=== PATIENT | male | born 1995 | race African-American/Black ===

== ENCOUNTER 2024-07-14 13:34 | Inpatient (IN) | payer OTHER ==
[~2024-07-14] VITALS: Ht 193 cm; Wt 98.4 kg
[2024-07-14] MEDS ORDERED: AMLODIPINE BESYLATE 5 MG TABLET ONE (15:08)
[2024-07-14] MEDS: AMLODIPINE BESYLATE 5 MG TABLET PO ONE (15:20)
[2024-07-14 15:30] LABS: BASOPHILS % (AUTO) 0.3 % (0.0-2.0); EOSINOPHILS % (AUTO) 0.1 % (0.0-6.0); HEMATOCRIT 38 % (39-51); HEMOGLOBIN 12.6 g/dL (13.5-17.5); LYMPHOCYTES # (AUTO) 1.3 K/uL (0.8-4.8); LYMPHOCYTES % (AUTO) 11.1 % (20.0-44.0); MEAN CORPUSCULAR HEMOGLOBIN 29 PG (26.0-33.0); MEAN CORPUSCULAR HGB CONC 33 g/dl (31.0-36.0); MEAN CORPUSCULAR VOLUME 86 fL (80-96); MONOCYTES # (AUTO) 0.3 K/uL (0.1-1.30); NEUTROPHILS # (AUTO) 9.9 K/uL (1.8-8.9); NEUTROPHILS % (AUTO) 85.5 % (43.0-81.0); PLATELET COUNT (AUTO) 249 K/uL (150-450); RED CELL DISTRIBUTION WIDTH 15.2 % (11.5-15.0); WHITE BLOOD COUNT (AUTO) 11.6 K/uL (4.3-11.0)
[2024-07-14 16:01] LABS: ALANINE AMINOTRANSFERASE 41 U/L (12-78); ALBUMIN 3.6 g/dL (3.4-5.0); ALKALINE PHOSPHATASE 71 U/L (46-116); ASPARTATE AMINOTRANSFERASE 22 U/L (15-37); BILIRUBIN,DIRECT 0.4 mg/dL (0.0-0.2); BILIRUBIN,TOTAL 1.8 mg/dL (0.2-1.0); TOTAL PROTEIN, SERUM 6.9 g/dL (6.4-8.2)
[2024-07-14 16:21] LABS: CALCIUM, SERUM 9.2 mg/dL (8.5-10.1); CARBON DIOXIDE 26 mmol/L (21-32); CHLORIDE 104 mmol/L (98-107); CREATININE 1.5 mg/dL (0.6-1.3); GLUCOSE 147 mg/dL (74-106); POTASSIUM 3.7 mmol/L (3.5-5.1); SODIUM SERUM 138 mmol/L (136-145); UREA NITROGEN, BLOOD 20 mg/dL (7-18)
[2024-07-14] MEDS: hydrALAZINE HCL IV 20 MG VIAL IV ONE (16:30)
[2024-07-14] MEDS ORDERED: PROCHLORPERAZINE EDISYLATE 10 MG/2 ML VIAL ONE (16:31)
[2024-07-14] MEDS ORDERED: diphenhydrAMINE HCL 50 MG/ML VIAL ONE (16:31)
[2024-07-14] MEDS: diphenhydrAMINE HCL 50 MG/ML VIAL IV ONE (16:35)
[2024-07-14] MEDS ORDERED: hydrALAZINE HCL IV 20 MG VIAL ONE (16:37)
[2024-07-14] MEDS: PROCHLORPERAZINE EDISYLATE 10 MG/2 ML VIAL IVP ONE (16:40)
[2024-07-14] MEDS: IV NS 0.9% 1,000 ML BAG IV ONE (16:50)
[2024-07-14] MEDS ORDERED: FUROSEMIDE 20 MG/2 ML VIAL ONE (18:55)
[2024-07-14] MEDS ORDERED: NTG 50 MG/D5W250 ML BOTTL 250 ML IV ONE (18:56)
[2024-07-14] MEDS: FUROSEMIDE 20 MG/2 ML VIAL IV ONE (19:00)
[2024-07-14] MEDS: NTG 50 MG/D5W250 ML BOTTL 250 ML IV PRN (19:10)
[2024-07-14] MEDS ORDERED: MAG HYDROX/AL HYDROX/SIMETH 30 ML UDC PO PRN (20:30)
[2024-07-14] MEDS ORDERED: ONDANSETRON HCL/PF 4 MG/2 ML VIAL IVP PRN (20:30)
[2024-07-14] MEDS ORDERED: MAGNESIUM HYDROXIDE 30 ML UDC PO PRN (20:30)
[2024-07-14] MEDS ORDERED: Z GUARD REMEDY 4 OZ OINT TP PRN (20:30)
[2024-07-14 20:42] LABS: APPEARANCE,URINE CLEAR (CLEAR); BILIRUBIN,URINE NEGATIVE (NEGATIVE); BLOOD, URINE NEGATIVE Ery/uL (NEGATIVE); COLOR,URINE OTHER (YELLOW); KETONES,URINE NEGATIVE (NEGATIVE); LEUKOCYTE ESTERASE ,URINE NEGATIVE (NEGATIVE); NITRITE, URINE NEGATIVE (NEGATIVE); PROTEIN,URINE NEGATIVE (NEGATIVE); UGLUCOSE NEGATIVE (NEGATIVE); UROBILINOGEN,URINE 0.2 EU/dL (0.2)
[2024-07-14 20:52] VITALS: O2SAT 98
[2024-07-14] MEDS: FUROSEMIDE 20 MG/2 ML VIAL IV SCH (21:00)
[2024-07-14 21:11] LABS: AMPHETAMINE, URINE NEGATIVE (NEGATIVE); BARBITURATE, URINE NEGATIVE (NEGATIVE); BENZODIAZEPINE, URINE NEGATIVE (NEGATIVE); CANNABINOID, URINE NEGATIVE (NEGATIVE); COCCAINE, URINE NEGATIVE (NEGATIVE); OPIATE, URINE NEGATIVE (NEGATIVE); PHENCYCLIDINE SCREEN,URINE NEGATIVE (NEGATIVE)
[2024-07-14] MEDS ORDERED: MAG HYDROX/AL HYDROX/SIMETH 30 ML UDC ONE (22:29)
[2024-07-14 22:56] VITALS: O2SAT 98
[2024-07-15 01:21] VITALS: O2SAT 97
[2024-07-15 02:48] VITALS: O2SAT 98
[2024-07-15 05:04] VITALS: O2SAT 98
[2024-07-15] MEDS ORDERED: NTG 50 MG/D5W250 ML BOTTL 250 ML IV ONE (05:22)
[2024-07-15] MEDS: NTG 50 MG/D5W250 ML BOTTL 250 ML IV PRN (07:30)
[2024-07-15 08:20] VITALS: O2SAT 98
[2024-07-15 08:46] LABS: BASOPHILS % (AUTO) 0.2 % (0.0-2.0); HEMATOCRIT 34 % (39-51); HEMOGLOBIN 11.9 g/dL (13.5-17.5); LYMPHOCYTES # (AUTO) 1.5 K/uL (0.8-4.8); LYMPHOCYTES % (AUTO) 10.3 % (20.0-44.0); MEAN CORPUSCULAR HEMOGLOBIN 29 PG (26.0-33.0); MEAN CORPUSCULAR HGB CONC 35 g/dl (31.0-36.0); MEAN CORPUSCULAR VOLUME 85 fL (80-96); MONOCYTES # (AUTO) 0.9 K/uL (0.1-1.30); MONOCYTES % (AUTO) 6.3 % (2.0-12.0); NEUTROPHILS # (AUTO) 12.1 K/uL (1.8-8.9); NEUTROPHILS % (AUTO) 83.2 % (43.0-81.0); PLATELET COUNT (AUTO) 216 K/uL (150-450); RED BLOOD CELL COUNT(AUTO) 4.05 MIL/uL (4.5-6.0); RED CELL DISTRIBUTION WIDTH 15.3 % (11.5-15.0); WHITE BLOOD COUNT (AUTO) 14.5 K/uL (4.3-11.0)
[2024-07-15] MEDS: PANTOPRAZOLE 40 MG VIAL IV SCH (09:00)
[2024-07-15 09:05] LABS: INR 1.31 (0.91-1.10); PROTHROMBIN TIME 13.6 SECS (9.2-11.1)
[2024-07-15] MEDS ORDERED: FUROSEMIDE 20 MG/2 ML VIAL ONE (09:23)
[2024-07-15] MEDS ORDERED: PANTOPRAZOLE 40 MG VIAL ONE (09:24)
[2024-07-15 09:42] LABS: ALBUMIN 3.3 g/dL (3.4-5.0); CALCIUM, SERUM 8.4 mg/dL (8.5-10.1); CARBON DIOXIDE 28 mmol/L (21-32); CHLORIDE 103 mmol/L (98-107); CREATININE 1.4 mg/dL (0.6-1.3); GLUCOSE 119 mg/dL (74-106); MAGNESIUM 1.3 mg/dL (1.8-2.4); PHOSPHORUS 3.7 mg/dL (2.5-4.9); SODIUM SERUM 139 mmol/L (136-145); UREA NITROGEN, BLOOD 16 mg/dL (7-18)
[2024-07-15 10:10] LABS: ALANINE AMINOTRANSFERASE 38 U/L (12-78); ALKALINE PHOSPHATASE 66 U/L (46-116); ASPARTATE AMINOTRANSFERASE 20 U/L (15-37); BILIRUBIN,DIRECT 0.5 mg/dL (0.0-0.2); BILIRUBIN,TOTAL 2.2 mg/dL (0.2-1.0); TOTAL PROTEIN, SERUM 6.3 g/dL (6.4-8.2)
[2024-07-15 10:28] LABS: NT-PRO BNP < 5 pg/mL (0-125)
[2024-07-15] MEDS ORDERED: POTASSIUM CHLORIDE 20 MEQ TAB.PRT.SR PO ONE (11:09)
[2024-07-15] MEDS: POTASSIUM CHLORIDE 20 MEQ TAB.PRT.SR PO ONE (11:14)
[2024-07-15] MEDS ORDERED: NIFEdipine XL (30MG) 30 MG TAB PO SCH (13:30)
[2024-07-15] MEDS: LABETALOL 20 MG/4 ML VIAL IV ONE (13:35)
[2024-07-15] MEDS ORDERED: Magnesium 1GM/D5W 100ML PREMIX 100 ML IV ONE ×4 (13:40→16:49)
[2024-07-15] MEDS: Magnesium 1GM/D5W 100ML PREMIX 100 ML IV SCH (13:40)
[2024-07-15] MEDS ORDERED: LABETALOL 20 MG/4 ML VIAL ONE (13:40)
[2024-07-15] MEDS ORDERED: CARVEDILOL 12.5 MG TABLET PO SCH (14:00)
[2024-07-15] MEDS: NIFEdipine XL (30MG) 30 MG TAB PO SCH (14:04)
[2024-07-15] MEDS: BUMETANIDE INJ 4 MG in IV NS 0.9% 24 ML IV ONE (14:06)
[2024-07-15] MEDS ORDERED: SPIRONOLACTONE 25 MG TABLET ONE (14:11)
[2024-07-15] MEDS: SPIRONOLACTONE 25 MG TABLET PO SCH (14:51)
[2024-07-15] MEDS: VALSARTAN 80 MG TABLET PO SCH (14:51)
[2024-07-15] MEDS: hydrALAZINE HCL 50 MG TABLET PO SCH (17:30)
[2024-07-15] MEDS ORDERED: hydrALAZINE HCL IV 20 MG VIAL ONE (17:32)
[2024-07-15] MEDS: MINOXIDIL (2.5MG) 2.5 MG TABLET PO STA (17:49)
[2024-07-15] MEDS: hydrALAZINE HCL IV 20 MG VIAL IV PRN (17:50)
[2024-07-15] MEDS ORDERED: NICARDIPINE IN DEXTROSE,ISO-OS 0 ML IV ONE (18:45)
[2024-07-15] MEDS: NICARDIPINE HCL 50 MG in IV NS 0.9% 230 ML IV PRN (19:13)
[2024-07-15 21:00] VITALS: BP 113/58; TEMP 101; O2SAT 100
[2024-07-15] MEDS ORDERED: LABETALOL HCL (100MG) 100 MG TABLET PO SCH (21:00)
[2024-07-15] MEDS: ACETAMINOPHEN 325 MG TABLET PO PRN (21:26)
[2024-07-15 22:00] VITALS: BP 123/71; O2SAT 99
[2024-07-16] VITALS (27 sets, daily range): BP systolic 90–131; BP diastolic 60–80; TEMP 98.5–99; O2SAT 98–100
[2024-07-16 05:31] LABS: ALBUMIN 3.4 g/dL (3.4-5.0); BILIRUBIN,TOTAL 2.5 mg/dL (0.2-1.0); CALCIUM, SERUM 8.5 mg/dL (8.5-10.1); CREATININE 1.4 mg/dL (0.6-1.3); MAGNESIUM 1.8 mg/dL (1.8-2.4); PHOSPHORUS 4.3 mg/dL (2.5-4.9); TOTAL PROTEIN, SERUM 6.8 g/dL (6.4-8.2)
[2024-07-16 05:33] LABS: BASOPHILS % (AUTO) 0.4 % (0.0-2.0); EOSINOPHILS % (AUTO) 0.2 % (0.0-6.0); HEMATOCRIT 39 % (39-51); HEMOGLOBIN 13.1 g/dL (13.5-17.5); LYMPHOCYTES # (AUTO) 2.2 K/uL (0.8-4.8); LYMPHOCYTES % (AUTO) 17.4 % (20.0-44.0); MEAN CORPUSCULAR HEMOGLOBIN 28 PG (26.0-33.0); MEAN CORPUSCULAR HGB CONC 33 g/dl (31.0-36.0); MEAN CORPUSCULAR VOLUME 85 fL (80-96); MONOCYTES % (AUTO) 7.9 % (2.0-12.0); NEUTROPHILS # (AUTO) 9.4 K/uL (1.8-8.9); NEUTROPHILS % (AUTO) 74.1 % (43.0-81.0); PLATELET COUNT (AUTO) 229 K/uL (150-450); RED BLOOD CELL COUNT(AUTO) 4.63 MIL/uL (4.5-6.0); RED CELL DISTRIBUTION WIDTH 15.4 % (11.5-15.0); WHITE BLOOD COUNT (AUTO) 12.7 K/uL (4.3-11.0)
[2024-07-16 05:34] LABS: POTASSIUM 2.8 mmol/L (3.5-5.1)
[2024-07-16] MEDS: PANTOPRAZOLE 40 MG TABLET.DR PO SCH (08:18)
[2024-07-16] MEDS: POTASSIUM CHLORIDE 20 MEQ TAB.PRT.SR PO ONE ×2 (08:19→15:56)
[2024-07-16] MEDS ORDERED: GADOTERATE MEGLUMINE 10 MMOL/20 ML VIAL IV ONE (14:37)
[2024-07-16] MEDS ORDERED: NIFE-35 PO (15:30)
[2024-07-16] MEDS ORDERED: SPIR25TA PO (15:30)
[2024-07-16] MEDS ORDERED: NIFE60TA2 PO (15:30)
[2024-07-16] MEDS ORDERED: DAPA10TA PO (15:30)
[2024-07-16] MEDS ORDERED: CARV6.25 PO (15:30)
[2024-07-16] MEDS ORDERED: BUME0.5T6 PO (15:30)
[2024-07-16] MEDS ORDERED: hydrALAZINE HCL 50 MG TABLET PO PRN (17:39)
[2024-07-17 08:06] LABS: PTH, INTACT 69 pg/mL (15-65)
[2024-07-18 06:06] LABS: *SPE A/G RATIO 0.9 (0.7-1.7); *SPE ALPHA-1-GLOBULIN 0.4 g/dL (0.0-0.4); *SPE ALPHA-2-GLOBULIN 0.8 g/dL (0.4-1.0); *SPE GLOBULIN, TOTAL 3.2 g/dL (2.2-3.9); *SPE M-SPIKE Not Observed g/dL (Not Observed); *SPE PROTEIN TOTAL 6.2 g/dL (6.0-8.5); *SPEGAMMA GLOBULIN 1.1 g/dL (0.4-1.8)
== END 2024-07-16 22:35 | disposition short-term general hospital (02) | DRG 280 ==
LOC: ER 13:34 → TRANSITION 21:59 → ICU 07-15 19:12 → TELE 07-16 10:25
PROVIDERS: ADMIT Surgery Vascular Surgery; ATTEND Nurse Practitioner Acute Care
PROC: 5A09357 Assistance with Respiratory Ventilation, Less than 24 Consecutive Hours, Continuous Positive Airway Pressure (ICD-10-PCS; principal; 2024-07-14)
DX: I13.0 Hypertensive heart and chronic kidney disease with heart failure and stage 1 through stage 4 chronic kidney disease, or unspecified chronic kidney disease (principal); I50.43 Acute on chronic combined systolic (congestive) and diastolic (congestive) heart failure; I21.A1 Myocardial infarction type 2; J96.01 Acute respiratory failure with hypoxia; N17.0 Acute kidney failure with tubular necrosis; I63.9 Cerebral infarction, unspecified; I16.1 Hypertensive emergency; D68.9 Coagulation defect, unspecified; I42.0 Dilated cardiomyopathy; Z20.822 Contact with and (suspected) exposure to COVID-19; D64.9 Anemia, unspecified; E87.6 Hypokalemia; E83.42 Hypomagnesemia; M89.8X9 Other specified disorders of bone, unspecified site; E80.6 Other disorders of bilirubin metabolism; Z86.16 Personal history of COVID-19; N18.9 Chronic kidney disease, unspecified
CPT/HCPCS: 36415; 70450-TC; 70553-TC; 71045-TC; 80048-TC; 80053-TC; 80076-TC; 82550-TC; 83735-TC; 83880; 83970; 84100-TC; 84155; 84165; 84244; 84443-TC; 84484-TC; 85025-TC; 85610-TC; 87081-TC; 87086-TC; 93307-TC; 94799-TC; A4223; A9575; G0378; J0360; J0780; J1200; J1940; J2405; J2470; J3475; J3490; J7030; J7050